=== PATIENT | female | born 1980 | race Caucasian/White ===

== ENCOUNTER 2020-10-19 11:16 | Emergency (ER) | payer OTHER ==
[~2020-10-19] VITALS: Ht 165.1 cm; Wt 60.3 kg
[2020-10-19 12:21] LABS: BILIRUBIN Negative (Negative); BLOOD 3+ (Negative); CLARITY Cloudy (Clear); COLOR Red (Yellow); GLUCOSE Negative (Negative); KETONE Negative (Negative); LEUKO ESTERASE 1+ (Negative); NITRITE Negative (Negative); PH 6.5 (4.5-8.0); SPECIFIC GRAVITY 1.015 (1.001-1.030)
[2020-10-19 12:46] LABS: BACTERIA 1+; EPITHELIAL CELLS 21-30; RBC TNTC rbc/hpf (0-2); WBC 21-30 wbc/hpf (0-5)
[2020-10-19] MEDS ORDERED: MACROBID100 M1 PO (13:26)
== END 2020-10-19 13:51 | disposition home or self-care (01) ==
LOC: ED 11:16
PROVIDERS: Physician Assistant
DX: O23.42 Unspecified infection of urinary tract in pregnancy, second trimester (principal); Z3A.27 27 weeks gestation of pregnancy